=== PATIENT | female | born 1945 | race Caucasian/White ===

== ENCOUNTER 2018-03-10 12:06 | Inpatient (IN) ==
--- NOTE | 2018-03-10 12:20 | Emergency Department Note ---
Disposition Clinical Impression: ST elevation myocardial infarction (STEMI) Qualifiers: Involved coronary artery: unspecified coronary artery Qualified Code(s): I21.3 - ST elevation (STEMI) myocardial infarction of unspecified site Disposition: Admitted As Inpatient Condition: Fair Referrals: NONE,PCP [Primary Care Provider] - Forms: ED Satisfaction Letter Time of Disposition: 12:25 Chest Pain HPI - General Chief Complaint: ED Chest Pain Stated Complaint: Chest Pain Time Seen by Provider: 03/10/18 12:10 Source: patient Mode of arrival: ambulatory Limitations: no limitations Vital Signs Reviewed: Yes Nursing Notes Reviewed: Yes - History of Present Illness HPI Narrative: 73-year-old female presents to the emergency department via EMS with a STEMI. EMS sent the EKG electronically to us reread as a STEMI and called a STEMI at 1200. Patient states that she was having chest pain beginning today said she was very diaphoretic and family's worries as well as a had her come here via EMS. She otherwise has no cardiac history to take any blood thinners. Patient 6 weeks ago did have cholecystectomy that was uneventful. Patient did receive 4 aspirin and 1 nitroglycerin. Patient's chest pain was originally 7F 10 is now a 0 out of 10 when she arrived to the emergency department after receiving his medications. They did place an IV. - Related Data Home Medications Medication Instructions Recorded Confirmed Cholecalciferol (D-3) [Vitamin D] 1,000 unit PO DAILY 02/05/18 02/05/18 Previous Rx's Medication Instructions Recorded OxyCODONE/APAP 7.5/325 [Percocet 1 each PO Q8HR PRN 7 Days #21 02/05/18 7.5/325 MG] tablet Allergies Allergy/AdvReac Type Severity Reaction Status Date / Time latex Allergy Swelling Verified 01/30/18 08:35 of Lip/Tongue/Throat Penicillins [PCN] Allergy Swelling Verified 02/05/18 09:39 of Lip/Tongue/Throat Sulfa (Sulfonamide Allergy Swelling Verified 02/05/18 09:39 Antibiotics) of Lip/Tongue/Throat Constitutional: Denies: fever, chills, weakness, weight change Eyes: Denies: eye pain, eye discharge, vision change ENT ED: Denies: ear pain, throat pain, dental pain, hearing loss, epistaxis, congestion, dysphagia Cardiovascular: Reports: chest pain. Denies: palpitations, dyspnea on exertion , edema, syncope Respiratory: Denies: cough, dyspnea, wheezes, hemoptysis, stridor Gastrointestinal: Denies: abdominal pain, nausea, vomiting, diarrhea, constipation, hematemesis, melena, hematochezia Genitourinary: Denies: dysuria, frequency, hematuria, discharge Musculoskeletal: Denies: back pain, neck pain, arthralgia, myalgia Integumentary: Denies: rash, abrasion, lesions Neurological: Denies: headache, weakness, numbness, paresthesias, confusion, abnormal gait, vertigo Psychiatric: Denies: anxiety, depression, suicidal thoughts, homicidal thoughts , auditory hallucinations, visual hallucinations Endocrine: Denies: fatigue Hematological/Lymphatic: Denies: easy bleeding, easy bruising Allergic/Immunologic: Denies: facial swelling, urticaria Chest Pain PMH - Past Medical History Medical history: Reports: kidney stones Surgical history: Reports: hysterectomy, ureteral stent Psychiatric history: Reports: no psych history ICE CREAM FREEZER history: Reports: no ICE CREAM FREEZER history - Social History Smoking Status: Never smoker Alcohol use: Reports: none Drug use: Reports: none Physical Exam - General Limitations: no limitations General appearance: alert, in no apparent distress - Head Head exam: atraumatic, normocephalic, normal inspection - Eye Eye exam: Present: normal appearance, PERRL, EOMI - ENT ENT exam: normal exam, normal oropharynx, mucous membranes moist - Neck Neck exam: Present: normal inspection, full ROM, trachea midline - Chest Chest inspection: Present: normal inspection, symmetric chest wall rise - Respiratory Respiratory exam: Present: normal lung sounds bilaterally - Cardiovascular Cardiovascular exam: Present: regular rate, normal rhythm, normal heart sounds - Abdominal Exam Abdominal exam: Present: soft, Non-Tender, normal bowel sounds. Absent: tenderness, distention, guarding, rebound, rigidity - Extremities Exam Extremities exam: Present: normal inspection, full ROM. Absent: tenderness, pedal edema - Back Exam Back exam: Present: normal inspection, full ROM. Absent: tenderness, CVA tenderness (R), CVA tenderness (L) - Neurological Exam Neurological exam: Present: alert, oriented X3 - Skin Skin exam: Present: warm, dry, intact, normal color Course Course Narrative: 73-year-old female presents to the emergency room with a STEMI. We x-rayed STEMI at 1200. We contacted the catheter lab and they were between cases was said to call Reglan patient gets urinate but them right back. We will place IV draw labs and put in the catheterization order and sent to catheter lab for further intervention. - Consultations Consultation #1: Spoke with the jewel hole cornerer Dr. Strange who agreed to take the patient's stay to catheterization lab. STEMI was called at 1200 spoke with him at 1202 Time: 12:02 Vital Signs Temperature 97.6 F 03/10/18 12:08 Pulse Rate 67 03/10/18 12:08 Respiratory Rate 20 03/10/18 12:08 Blood Pressure 134/79 03/10/18 12:08 O2 Sat by Pulse Oximetry 98 03/10/18 12:08 Temperature 97.6 F 03/10/18 12:08 Pulse Rate 67 03/10/18 12:08 Respiratory Rate 20 03/10/18 12:08 Blood Pressure 134/79 03/10/18 12:08 O2 Sat by Pulse Oximetry 98 03/10/18 12:08 Oxygen Delivery Oxygen Delivery Room Air Chest Pain - MDM Narrative Medical decision making narrative: 73-year-old female presents to the emergency department with a STEMI. She was symptomatic today and the mealy called EMS with chest pain. When they had a EKG done with EMS presented here and we had a redo AMA again showed ST elevation in leads V2 V3 with reciprocal changes in lead 3. At that time we did call a STEMI alert which is right at 1200. Patient did arrive at 1205 and that time we her story from EMS got an EKG which showed ST elevation in leads V2 through V4 with and 1 with reciprocal changes in 3 and aVF. Due to this we did contact the [facility] with another here we place an IV sheryl labs place the catheterization order in M transfer patient to [facility] for heart catheterization. Patient was notified of everything has gone on she agrees with the plan. Patient was admitted to cardiology service. Patient was in stable condition she was alert and oriented and speaking to us during the entire process. Patient's chest pain was 0-10 when she went to the [facility] originally was 7 out of 10. They did give for aspirin and 1 nitroglycerin and EMS prior to arrival. We did not give anything else in the emergency department. - Medical Records Medical records reviewed: Yes I reviewed the patient's medical records. - EKG Data EKG attestation: Yes I reviewed and interpreted this EKG. EKG results narrative: EKG done at 1214 review myself and the attending shows an acute TN sinus rhythm at a rate of 67, QRS 77, QTC 448. There is ST elevation in leads V2 through V4 and 1 with reciprocal changes in 3 and aVF. No other acute T-wave changes. No signs of any heart block, hypertrophy, heart strain. No signs of WPW/Brugada/ HOCM. When compared with old EKG done a partially 6 weeks ago for surgery this is all new. Heart Score - Score History: Highly Suspicious EKG: Significant ST-Depression Age: Greater than 65 Risk Factors: 1-2 risk factors Troponin: Less than normal limit HEART Score Total: 7 Attestation Statement - Attestation Attestation: I, Richard Britton DO, examined this patient [id number] and my medical decision-making was reviewed with Dr. Anant Vance, Resident Physician. I agree with the documented findings, disposition and treatment plan as described except to the extent set forth below. Please see my progress notes for details.
--- NOTE | 2018-03-10 12:21 | Emergency Department Note ---
Disposition Clinical Impression: ST elevation myocardial infarction (STEMI) Disposition: Admitted As Inpatient Condition: Fair Forms: ED Satisfaction Letter Time of Disposition: 12:23 General Adult HPI - General Chief complaint: ED Chest Pain Stated complaint: Chest Pain Time Seen by Provider: 03/10/18 12:10 Source: patient, EMS Limitations: no limitations - History of Present Illness Pain Scale: 2 - Related Data Home Medications Medication Instructions Recorded Confirmed Cholecalciferol (D-3) [Vitamin D] 1,000 unit PO DAILY 02/05/18 02/05/18 Previous Rx's Medication Instructions Recorded OxyCODONE/APAP 7.5/325 [Percocet 1 each PO Q8HR PRN 7 Days #21 02/05/18 7.5/325 MG] tablet Allergies Allergy/AdvReac Type Severity Reaction Status Date / Time latex Allergy Swelling Verified 01/30/18 08:35 of Lip/Tongue/Throat Penicillins [PCN] Allergy Swelling Verified 02/05/18 09:39 of Lip/Tongue/Throat Sulfa (Sulfonamide Allergy Swelling Verified 02/05/18 09:39 Antibiotics) of Lip/Tongue/Throat Past Medical History - Past Medical History Medical history: Reports: kidney stones Surgical history: Reports: hysterectomy, ureteral stent Psychiatric history: Reports: no psych history HEEL TURNER history: Reports: no HEEL TURNER history - Social History Smoking Status: Former smoker Smokeless Tobacco Status: No Alcohol use: Reports: none Drug use: Reports: none Physical Exam - General Limitations: no limitations General appearance: alert, in no apparent distress Course Vital Signs Temperature 97.6 F 03/10/18 12:08 Pulse Rate 67 03/10/18 12:08 Respiratory Rate 20 03/10/18 12:08 Blood Pressure 134/79 03/10/18 12:08 O2 Sat by Pulse Oximetry 98 03/10/18 12:08 Temperature 97.6 F 03/10/18 12:08 Pulse Rate 67 03/10/18 12:08 Respiratory Rate 20 03/10/18 12:08 Blood Pressure 134/79 03/10/18 12:08 O2 Sat by Pulse Oximetry 98 03/10/18 12:08 Oxygen Delivery Oxygen Delivery Room Air Attestation Statement - Attestation Attestation: I, Richard Britton DO, examined this patient [id number] and my medical decision-making was reviewed with Dr. Anant Vance, Resident Physician. I agree with the documented findings, disposition and treatment plan as described except to the extent set forth below. Please see my progress notes for details. 73-year-old female presents emergency room by EMS for evaluation of chest discomfort and pain. Patient had EKG transmitted to our emergency room prior to arrival it was consistent with an anterior myocardial infarction with elevations in leads 1 and aVL. There is no visible signs of lateral ischemia this point the patient did have reciprocal changes in leads 3 and aVF. STEMI alert was called at 1200 hours. Patient arrived by EMS and the cardiac catheterization team is at the bedside within minutes of arrival. Patient had repeat EKG does show progression of the symptoms with elevations in leads V2 V3 and V4. Patient is progressing into an anterior lateral myocardial infarction. Patient still had symptoms but significantly less on arrival here. Initial pain was 9 out of 10 after one nitroglycerin the pain went down but she described as 7 out of 10 on arrival here. Vital signs are stable heart rate was normal lungs are clear heart was regular. Catheterization team as well as Dr. Strange was contacted and admitted the patient for catheterization at this time. Patient has no other risk factors she denies any history of hypertension hyperlipidemia or diabetes. She has never had a cardiac catheterization before. She did just recently have a cholecystectomy completed 5 weeks ago with no complications and his only other surgical history is a hysterectomy. Patient otherwise clinically stable in no distress and stable to transport to the [facility]. No history of aneurysm or dissection low clinical concern for this etiology based on the presentation symptoms. See detailed documentation of physical exam, medical intervention, medical decision-making and disposition the resident physician's note. No critical care provider the patient's treatment course at this time. Aspirin and nitroglycerin were given prior to arrival.
[2018-03-10] MEDS ORDERED: *HR* Midazolam HCl 2 MG/2 ML VIAL ONE (12:22)
[2018-03-10 12:38] LABS: Basophils # 0.1 K/mcL (0.0-0.2); Basophils % 0.7 %; Eosinophils # 0.2 K/mcL (0.0-0.6); Eosinophils % 1.5 %; Hematocrit 44.4 % (35.3-44.9); Hemoglobin 15.1 g/dL (11.5-15.4); Immature Granulocytes % 0.4 % (0-4); Lymphocytes # 2.8 K/mcL (0.6-4.6); Lymphocytes % 27.8 %; Mean Corpuscular Volume 94.1 fL (83.0-100.0); Monocytes # 0.6 K/mcL (0.0-1.3); Monocytes % 6.4 %; Neutrophils # 6.3 K/mcL (1.6-8.9); Platelet Count 338 K/mcL (140-400); Red Blood Count 4.72 M/mcL (3.82-4.97); Red Cell Distribution Width 12.8 % (11.5-14.5); Segmented Neutrophils % 63.2 %
[2018-03-10 12:48] LABS: Prothrombin Time 11.4 Seconds (9.4-12.1)
[2018-03-10 12:49] LABS: BUN/Creatinine Ratio 30 (6-26); Blood Urea Nitrogen 19 mg/dL (8-23); Calcium 9.5 mg/dL (8.6-10.3); Carbon Dioxide 24 mEq/L (23-29); Chloride 105 mEq/L (98-107); Glucose 144 mg/dL (70-105); Magnesium 2.1 mg/dL (1.6-2.6); Osmolality,Calculated 291 (280-300); Potassium 3.9 mEq/L (3.5-5.1); Sodium 138 mEq/L (136-145); eGFR For Non-African Americans > 60 (> 60)
[2018-03-10 12:54] LABS: Troponin I 0.56 ng/mL (< 0.04)
[2018-03-10] MEDS ORDERED: 0.9 % Sodium Chloride 1,000 ML ONE (13:15)
[2018-03-10] MEDS ORDERED: *HR* Ticagrelor 90 MG TABLET ONE (13:15)
[2018-03-10] MEDS ORDERED: Nitroglycerin 1,000 MCG/10 ML VIAL IV ONE (13:16)
[2018-03-10] MEDS ORDERED: ISOVUE-370 200 ML INFUS..BTL IV ONE (13:16)
[2018-03-10] MEDS ORDERED: Heparin 1,000 UNITS/500 mL 500 ML ONE ×2 (13:16→17:56)
[2018-03-10] MEDS ORDERED: *HR* Heparin 10,000 UNIT/10 ML VIAL ONE (13:16)
--- NOTE | 2018-03-10 13:29 | Invasive Diagnostic Lab Proc ---
Name: Jessa Polanco Date of Study: 03/10/2018 Date: 1945 Ht: 62.0in Medical Record#: [id number] Age: 73 Wt: 158.00lb Gender: Female BSA: 1.73 Order #: [id number] BMI: 28.9 Physicians Procedure Physician: Jaron Strange DO Referring MD: Referring MD: Staff Name Position Time In Mandie Person RT Scrub 12:20 PM Isa Blandon RT (R) Monitor 12:20 PM Steve Odonnell RN Body And Frame Man 12:21 PM Indications Indication STEMI Procedures Performed Procedure PRQ CARD REVASC MT 1 VSL Pre-Procedure Checklist Informed consent is complete signed and on chart. H&P is on chart. ID band is on and ID verified with patient. Patient NPO for procedure The procedure was described for the patient and questions were answered. ECG is on chart. Rhythm: STEMI Plan of Care Patient will tolerate the procedure without complications. Adequate level of comfort will be maintained. Hemodynamics will remain stable Patient will recover from procedure without complications. Respiratory function will be maintained. Cardiac rhythm will remain stable. Patient temperature will be maintained. Patient and/or family have verbalized understanding of the procedure. Patient Education Chief Complaint/Reason for Test: Cardiac Cath Developmental Category: Geriatric (65+ years) Developmentally Appropriate for Age: Yes Learning Barriers: None Education Needs: Procedure Education Method: Verbal Information Taught: Cardiac Cath Educational Evaluation: Able to repeat information Intravenous Access Time IV Size Location DC'd Fluid/Drip Rate Units RN 12:22 PM 22g 1" Patent On Arrival Lt Hand 12:22 PM 18g 1 1/4" Patent On Arrival Rt Antecubital 12:22 PM 18g 1 1/4" Patent On Arrival Lt Antecubital 0.9NaCl 25 ml/hr Steve Odonnell RN Allergies PCN (penicillin) SULFA (sulfonamide) Penicillins Sulfa (Sulfonamide Antibiotics) latex Vital Signs Time BP (mmHg) HR (bpm) O2 Sat. RR (bpm) LOC 12:22 PM 132 / 84 70 95 % 20 5 = Fully awake and oriented or at pre-proc level 12:22 PM / % 4 = Oriented but drowsy 12:37 PM / % 4 = Oriented but drowsy 12:52 PM / % 4 = Oriented but drowsy 12:22 PM 132 / 84 68 99 % 31 12:27 PM 139 / 85 70 95 % 37 12:32 PM 145 / 88 72 98 % 27 12:37 PM 141 / 92 75 97 % 36 12:42 PM 145 / 85 77 96 % 49 12:47 PM 136 / 88 84 95 % 36 12:52 PM 130 / 83 72 96 % 32 12:57 PM 135 / 86 71 97 % 27 01:02 PM 128 / 72 68 97 % 16 01:07 PM 127 / 80 63 95 % 21 Procedural Medications Time Medication Dose Units Method Given By 12:21 PM Oxygen 2 L/min nasal cannula Steve Odonnell RN 12:24 PM Versed 2 mg Intravenous Steve Odonnell RN 12:31 PM Lidocaine 2% 10 ml Subcutaneous Jaron Strange DO 12:41 PM Heparin 5000 units Intravenous Steve Odonnell RN 12:49 PM Nitroglycerin 100 mcg Intracoronary Jaron Strange DO 12:58 PM Nitroglycerin 100 mcg Intracoronary Jaron Strange DO 01:05 PM Brilinta 180 mg Orally Steve Odonnell RN ASA Classification: Emergent Procedure: ASA score is assumed Anitra Score Preprocedure Postprocedure Activity 2- Moves 4 extremities sustained head lift Activity 2- Moves 4 extremities sustained head lift Circulation 2- SBP +/= 20 points of pre-anesthetic level Circulation 2- SBP +/= 20 points of pre-anesthetic level Consciousness 2- Awake and alert oriented x 3 Consciousness 2- Awake and alert oriented x 3 O2 Saturation 2- Able to maintain O2 satruation of 92% on room air O2 Saturation 2- Able to maintain O2 satruation of 92% on room air Respiratory 2- Able to deep breathe and cough well Respiratory 2- Able to deep breathe and cough well Total Score 10 Total Score 10 Contrast Agent: Isovue Diagnostic Contrast: 175 ml Total Contrast: 175 ml Fluoro Dose: 8942 mGy Activated Clotting Time Time Seconds to Clot 12:52 PM 400 01:11 PM 179 Procedure Log Time Note Enter By 12:20 PM CathStat 12:20 PM Pt arrived to refuse laborer 2 at 12:20 [facility] 12:20 PM Mandie Person RT Position: Scrub [facility]: [facility] 12[facility]21 PM Case Start 12:21 PM Isa Blandon RT (R) Position: Monitor Time in: 12:20 [facility] 12:21 PM Steve Odonnell RN Position: Body And Frame Man Time in: [facility] 12: PM Patient charges- Angio tray pack, Navilyst 3mm J, Pulse Oximetry and ACIST tubing and transducer [facility]: PM IV Supplies used: J loop Angio Cath. [facility]: PM Hair removed from procedure site in procedure lab using clippers. Bilateral groin prepped with Chloraprep by Eladia Velasquez, then patient was draped. Skin intact. [facility] : PM Vitals capture started with the following parameters, Patient=Adult, Interval=5 min, Initial Nrtfprvx=848 mmHg, Deflation Rate=5 mmHg, Cuff placed on Right Arm 12: PM Physician arrived : [facility] : PM Meet and greet completed [facility] : PM Sign in performed according to hospital policy. [facility] : PM Procedure start :[facility] : PM Time: 12: Oxygen on at 2 L/min per nasal cannula by Steve Odonnell RN [facility] : PM Time: 12:22 Patient comfortable and pain free: Yes [facility] PM Time: 12:22LOC: 5 = Fully awake and oriented or at pre-proc level [facility] : PM HR=68 bpm, RSIF=949/84 mmhg, SpO2=99.0 %, Resp=31 B/min, Comment=BRUCE lead 1 12:24 PM Time: 12:24 Versed 2 mg Intravenous Given by Steve Odonnell RN [facility] 12:25 PM Clinical Presentation: STEMI or equivalent [facility] : PM HR=70 bpm, HTBV=617/85 mmhg, SpO2=95.0 %, Resp=37 B/min, Comment=BRUCE lead 1 12: PM Pressure channel 2 zeroed. 12:29 PM Recorded ECG: HR=72 Condition=Condition 1 12:31 PM Time out performed according to hospital policy [facility] PM Time: 12:31 10 ml Lidocaine 2% to right groin Subcutaneous Given by Jaron Strange DO [facility] 12:32 PM HR=72 bpm, RIDW=607/88 mmhg, SpO2=98.0 %, Resp=27 B/min, Comment=BRUCE lead 1 12:32 PM Micro-Introducer Kit utilized for sheath placement [facility] 12:37 PM Access obtained by percutaneous puncture. 6Fr 10cm Terumo [place] sheath placed in right Femoral artery. [id number] dspellman 12:37 PM HR=75 bpm, OJJU=759/92 mmhg, SpO2=97.0 %, Resp=36 B/min, Comment=BRUCE lead 1 12:37 PM Time: 12:22LOC: 4 = Oriented but drowsy dspell 12:37 PM Time: 12:22 Patient comfortable and pain free: Yes dspell 12:38 PM 6Fr FR 4 catheter inserted over the wire DNC dspell 12:38 PM Recorded Pressure: LV, HR=77, Condition=Condition 1 (Left Ventricle) LV 125/25/30 12:39 PM Recorded Pressure: LV, Ao, HR=75, Condition=Condition 1 (Left Ventricle) LV 131/6/12, (Aorta) Ao 131/66/95 12:39 PM Catheter selectively placed in left ventricle dspell 12:39 PM Bolus angiogram of left Ventricle complete: 10 ml/sec for a total of 10 mls dspellman 12:39 PM RCA angiography performed in multiple views. dspell 12:39 PM Catheter removed dspellman 12:40 PM PCI Status Emergency dspellman 12:40 PM 6Fr JL4 Cordis guide catheter was used to cannulate the PCI vessel successfully. reused? No dspellman 12:41 PM .014 ChoICE PT Extra Support 300cm guide wire across target lesion- successful. reused? No dspellman 12:41 PM Recorded Pressure: Ao, HR=75, Condition=Condition 1 (Aorta) Ao 135/70/97 12:41 PM Inflation device was opened. dspell 12:41 PM LCA angiography performed in multiple views. dspell 12:42 PM Time: 12:41 Heparin 5000 units Intravenous Given by Steve Odonnell RN dspell 12:42 PM HR=77 bpm, UZLT=576/85 mmhg, SpO2=96.0 %, Resp=49 B/min, Comment=BRUCE lead 1 12:42 PM Lesion found in Mid LAD. Pre Stenosis: 100 Pre HARRIET Flow: 0: No Flow/No perfusion dspell 12:43 PM Lesion found in Distal Circumflex. Pre Stenosis: 80 Pre HARRIET Flow: 3: Complete and Brisk Flow/Perfusion dspellman 12:43 PM Recorded Pressure: Ao, HR=87, Condition=Condition 1 (Aorta) Ao 131/73/99 12:43 PM PCI lesion in Mid LAD. dspellman 12:44 PM Reperfusion with wire dspellman 12:45 PM 2.0 mm x 15 mm Emerge Monorail balloon across target lesion- successful. reused? No dspellman 12:46 PM Balloon inflated @ 12 janeth for 13 seconds dspellman 12:46 PM Balloon catheter removed intact. dspellman 12:47 PM HR=84 bpm, AHEM=810/88 mmhg, SpO2=95.0 %, Resp=36 B/min, Comment=BRUCE lead 1 12:47 PM 2.5mm x 15mm Cordis EluNIR drug-eluting stent across target lesion- successful Lot #[id number] dspellman 12:48 PM Stent deployed @ 14 janeth for 16 seconds dspellman 12:48 PM Stent delivery system removed intact. dspell 12:50 PM Time: 12:49 Nitroglycerin 100 mcg Intracoronary Given by Jaron Strange DO dspellman 12:52 PM HR=72 bpm, HFXT=999/83 mmhg, SpO2=96.0 %, Resp=32 B/min, Comment=BRUCE lead 1 12:52 PM Time: 12:37 Patient comfortable and pain free: Yes dspellman 12:52 PM Time: 12:37LOC: 4 = Oriented but drowsy dspellman 12:52 PM At 12:52 the ACT was >400 seconds. dspellman 12:54 PM 2.25mm x 16mm Synergy drug-eluting stent across target lesion- successful Lot #[id number] dspellman 12:54 PM Stent deployed @ 12 janeth for 15 seconds dspellman 12:55 PM Stent delivery system removed intact. dspellman 12:56 PM 2.5 mm x 8mm NC Emerge balloon across target lesion- successful. reused? No dspellman 12:57 PM HR=71 bpm, VBOT=448/86 mmhg, SpO2=97.0 %, Resp=27 B/min, Comment=BRUCE lead 1 12:57 PM Balloon inflated @ 18 janeth for 16 seconds dspellman 12:57 PM Balloon inflated @ 18 janeth for 12 seconds dspellman 12:58 PM Balloon catheter removed intact. dspellman 12:58 PM Time: 12:58 Nitroglycerin 100 mcg Intracoronary Given by Jaron Strange DO dspell 12:59 PM Recorded Pressure: Ao, HR=69, Condition=Condition 1 (Aorta) Ao 124/65/88 01:00 PM Guide wire removed intact. dspell 01:02 PM HR=68 bpm, BEKK=451/72 mmhg, SpO2=97.0 %, Resp=16 B/min 01:02 PM Guide catheter removed intact. dspell 01:03 PM Bolus angiogram of right Femoral complete: 5 ml/sec for a total of 5 mls dspell 01:03 PM Procedure completed at 13:03 03/10/2018 dspell:03 PM Did you address HARRIET flow and Dominance? Yes dspell 01:05 PM Time: 13:05 Brilinta 180 mg Orally Given by Steve Odonnell RN dspell 01:07 PM HR=63 bpm, ZXPN=370/80 mmhg, SpO2=95.0 %, Resp=21 B/min, Comment=sinus 01:08 PM Time: 12:52LOC: 4 = Oriented but drowsy dspell:08 PM Time: 12:52 Patient comfortable and pain free: Yes ell:09 PM Sign out completed: Radiation Dose 844.67 mGy, 8941.50 cGy/cm2 Fluoro Time: 6.1 Isovue 370 - 200ml contrast 175 ml given by Jaron Strange DO. Complications: NoneCardiac Rehab Consult needed: YesConfirmed administered medications: Yes ell: PM Isovue 370 - 200ml,2 Bottle(s) used. ell: PM Sheath left in place to be pulled on floor/holding areaV+Pad dspell: PM Estimated Blood Loss: minimal dspell:09 PM Post ECG NSR dspell: PM Post Blood Pressure 127/80 dspell: PM 13:09 Post Pulses Bilateral DP & PT 2+ dspell:10 PM Information taught Cardiac Cath and PCI dspell:10 PM Education needs Procedure, Disease Process, and Responsibilities of Patient in Care dspell:10 PM Learning barriers :None dspell:10 PM Education Methods Verbal dspell:10 PM Education evaluation Able to repeat information dspell:10 PM Site status No bleeding/hematoma - Rt Groin as reported by Mandie Person RT at 13:10 dspell 01:10 PM Opsite applied dspell 01:11 PM Family placed in consult room. dspellman 01:11 PM Complications: None dspell 01:11 PM At 13:11 the ACT was 179 seconds. dspell 01:15 PM Report given to Betty COHEN Pt taken to ICU Room #10. 13:15 dspell 01:16 PM Patient out of room: 13:16 [facility] Complications Complication None None Hemodynamics Pressures Site Systolic/A Wave Diastolic/V Wave Mean LV 125 25 30 LV 131 6 12 AO 131 66 95 AO 135 70 97 AO 131 73 99 AO 124 65 88 Post Procedure Information Blood Pressure: 127/80 mmHg Rhythm: NSR Post procedural instructions were given Closure Device Time Device Success/Fail 03/10/2018 1:16:00 PM Site Checks Time Location Status Staff Sheath In? Note 01:10 PM Rt Groin No bleeding/hematoma Mandie Person RT Pulses Time Site Pre-Procedure Post-Procedure Note 03/10/2018 12:24:00 PM Bilateral DP & PT 2+ 1:09:00 PM Bilateral DP & PT 2+ Updated by Isa Blandon RT (R) on 03/10/2018 1:21:19 PM RT Tommy electronically signed on 03/10/2018 1:22:21 PM with status of Final
--- NOTE | 2018-03-10 13:37 | Cardiology History & Physical ---
Date of Encounter: 03/10/18 Time of Encounter: 12:00 Assessment and Plan (1) ST elevation myocardial infarction (STEMI) Current Visit: Yes Status: Acute The assessment and plan as outlined above was discussed with the patient and/or family members who expressed understanding and agreement. All questions were answered. Ongoing chest pain with acute antLateral STEMI, recommend emergent LHC/Poss, pt agrees to proceed. Qualifiers: Involved coronary artery: LAD coronary artery Qualified Code(s): I21.02 - ST elevation (STEMI) myocardial infarction involving left anterior descending coronary artery (2) Vitamin D deficiency Current Visit: Yes Status: Chronic The assessment and plan as outlined above was discussed with the patient and/or family members who expressed understanding and agreement. All questions were answered. On Vitamin D replacement, following with primary care. (3) Cholecystitis Current Visit: Yes Status: Resolved The assessment and plan as outlined above was discussed with the patient and/or family members who expressed understanding and agreement. All questions were answered. Post cholecystectomy approx two weeks ago. History of Present Illness Chief complaint: chest pain HPI: H&P performed, old records reviewed, pt seen and examined prior to procedure, documentation completed post procedure to facilitate emergent LHC/poss, pt not fully reqistered before procedure. Ms. Polanco is a 73 year old female who had first episode of mid sternal chest pain 03/09/18, occurred at rest, lasted approx five minutes, resolved spontaneously. She had reoccurrence of chest pain while at rest this am, starting between 10 and 11, chest pressure, 10/10 at most severe, lasted ten minutes before calling squad, notes was diaphoretic and short of breath. She received sublingual ntg in the squad, with improvement in chest pain from 10 to 0. 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 Initial EKG showed acute anterior lateral Angie, minimal improvement with medical tx. She denies chest pain, pressure or shortness of breath prior to yesterdays episode. She underwent cholecystectomy approximately three weeks ago with some improvement in abdominal pain. She has no previous cardiac history, denies previous stress, echocardiogram or LHC. Past Med Surg Social Fam HX - Past Medical History Medical history: kidney stones Psychiatric history: no psych history - Past Surgical History Surgical History: hysterectomy, ureteral stent Additional surgical history: complete hysterectomy 1989. kidney stones. left ureteoscopic laser kithotripsy of stone with stent placement 2015 - Social History Smoking Status: Never smoker Smokeless Tobacco Status: No Alcohol use: none Drug use: none Medications and Allergies Cholecalciferol (D-3) [Vitamin D] 1,000 unit PO DAILY 02/05/18 [History] OxyCODONE/APAP 7.5/325 [Percocet 7.5/325 MG] 1 each PO Q8HR PRN 7 Days #21 tablet 02/05/18 [Rx] 3 Allergy/AdvReac Type Severity Reaction Status Date / Time latex Allergy Swelling Verified 01/30/18 08:35 of Lip/Tongue/Throat Penicillins [PCN] Allergy Swelling Verified 02/05/18 09:39 of Lip/Tongue/Throat Sulfa (Sulfonamide Allergy Swelling Verified 02/05/18 09:39 Antibiotics) of Lip/Tongue/Throat All Systems Review: The remainder of the systems were reviewed and are negative - Cardiovascular Cardiovascular: as per HPI - Gastrointestinal Gastrointestinal: abdominal pain, nausea, other (Pt recently had cholecystectomy ) Physical Examination General: Conversant, Other (complaining of 4/10 chest pain) HEENT: Atraumatic, Normocephaly Neck: No JVD Cardiac: Reg Rate and Rhythm, Normal S1 and S2 Lungs: Normal Breath Sounds, No Wheeze, Rales, Rhonchi Neuro: Alert and responsive, No focal deficits noted Abdomen: Soft, Non-Tender Skin: No rashes noted on visualized skin Musculoskeletal: No Chest Wall Tenderness Extremities: No Clubbing, No Cyanosis, No Edema, Normal Pulses Results 03/10/18 12:11 03/10/18 12:11
[2018-03-10] MEDS ORDERED: Nitroglycerin 0.4 MG TAB.SUBL SL PRN (13:47)
[2018-03-10] MEDS ORDERED: *HR* Atropine Sulfate 1 MG/10 ML SYRINGE ONE (15:42)
[2018-03-10] MEDS ORDERED: *HR* Heparin 5,000 UNIT/ML VIAL ONE (17:56)
[2018-03-10] MEDS ORDERED: Ondansetron 4 MG/2 ML VIAL ONE (17:57)
[2018-03-10] MEDS ORDERED: Heparin 25,000 UNIT/500 ML D5W 25,000 UNIT/500 ML BAG IVC SCH (18:00)
[2018-03-10] MEDS ORDERED: *HR* Heparin 5,000 UNIT/ML VIAL IVP ONE (18:04)
[2018-03-10] MEDS ORDERED: *HR* Heparin 5,000 UNIT/ML VIAL IVP PRN ×2 (18:04)
[2018-03-10] MEDS: 0.9 % Sodium Chloride 1,000 ML IVC SCH (18:20)
[2018-03-10 19:10] LABS: Hematocrit 43.7 % (35.3-44.9); Hemoglobin 14.5 g/dL (11.5-15.4); Mean Corpuscular HGB Conc 33.2 g/dL (31.6-35.5); Mean Corpuscular Hemoglobin 31.6 pg (28.0-33.3); Mean Corpuscular Volume 95.2 fL (83.0-100.0); Mean Platelet Volume 10.3 fL (9.4-12.4); Platelet Count 307 K/mcL (140-400); Red Blood Count 4.59 M/mcL (3.82-4.97); Red Cell Distribution Width 12.9 % (11.5-14.5)
[2018-03-10 19:15] LABS: INR 1.1; Prothrombin Time 11.9 Seconds (9.4-12.1)
[2018-03-10 19:19] LABS: Heparin anti-factor XA UFH 1.03 IU/mL (0.30-0.70)
[2018-03-10] MEDS: *HR* Ticagrelor 90 MG TABLET PO SCH (19:46)
[2018-03-10] MEDS ORDERED: Ondansetron 4 MG/2 ML VIAL IVP PRN (21:27)
[2018-03-10] MEDS ORDERED: *HR* Metoprolol 5 MG/5 ML VIAL IVP ONE ×2 (22:57→23:11)
[2018-03-10] MEDS ORDERED: *HR* LORazepam 2 MG/ML VIAL IVP PRN (23:01)
[2018-03-10] MEDS ORDERED: *HR* LORazepam 2 MG/ML VIAL ONE (23:11)
[2018-03-11 00:42] LABS: Basophils % 0.2 %; Hematocrit 41.5 % (35.3-44.9); Hemoglobin 13.9 g/dL (11.5-15.4); Immature Granulocytes % 0.2 % (0-4); Lymphocytes # 1.3 K/mcL (0.6-4.6); Lymphocytes % 10.1 %; Mean Corpuscular HGB Conc 33.5 g/dL (31.6-35.5); Mean Corpuscular Hemoglobin 31.4 pg (28.0-33.3); Mean Corpuscular Volume 93.7 fL (83.0-100.0); Mean Platelet Volume 10.2 fL (9.4-12.4); Monocytes # 0.6 K/mcL (0.0-1.3); Monocytes % 4.7 %; Neutrophils # 10.9 K/mcL (1.6-8.9); Platelet Count 311 K/mcL (140-400); Red Blood Count 4.43 M/mcL (3.82-4.97); Red Cell Distribution Width 13.2 % (11.5-14.5); Segmented Neutrophils % 84.8 %
[2018-03-11 00:58] LABS: BUN/Creatinine Ratio 30 (6-26); Blood Urea Nitrogen 15 mg/dL (8-23); Calcium 9.1 mg/dL (8.6-10.3); Carbon Dioxide 21 mEq/L (23-29); Chloride 108 mEq/L (98-107); Glucose 156 mg/dL (70-105); Osmolality,Calculated 290 (280-300); Potassium 4.2 mEq/L (3.5-5.1); Sodium 138 mEq/L (136-145); eGFR For Non-African Americans > 60 (> 60)
[2018-03-11] MEDS: 0.9 % Sodium Chloride 1,000 ML IVC SCH ×2 (02:16→04:15)
[2018-03-11] MEDS: *HR* Ticagrelor 90 MG TABLET PO SCH ×2 (07:46→21:12)
[2018-03-11] MEDS ORDERED: Aspirin 81 MG TAB.CHEW PO SCH (09:00)
--- NOTE | 2018-03-11 09:35 | Cardiology Progress Note ---
Date of Encounter: 03/11/18 Time of Encounter: 09:20 Assessment and Plan (1) ST elevation myocardial infarction (STEMI) Current Visit: Yes Status: Acute Admitted on 03/10/18 with anterior STEMI. [facility] 03/10/18: s/p succesful PTCA/CHRISTINA in the mLAD; otherwise 80% dLCx, EF 35% TTE: pending. Chest pain free upon exam. No issues with right groin cath site. Will plan to step down to 2N today, encouraged ambulation with assistance. Labs, vitals, and telemetry are stable. Continue BB, ACEi, statin. Emphasized the importance of uninterrupted DAPT (asa + brilinta) for a minimum of 1 year following CHRISTINA--pt. agreed. Cardiac rehab. VTE prophylaxis: currently on IV heparin gtt, will plan to transition to SC heparin once gtt d/c'ed. If remains stable, consider discharge to home on 03/12/18. Qualifiers: Involved coronary artery: LAD coronary artery Qualified Code(s): I21.02 - ST elevation (STEMI) myocardial infarction involving left anterior descending coronary artery (2) Systolic dysfunction Current Visit: Yes Status: Acute Likely secondary to acute NH. No prior testing. EF 35% per LV gram. TTE: pending. Tolerating BB and ACEi--on coreg and lisinopril. Continue to optimize doses as needed as BP/HR will tolerate. Clinically appears euvolemic up exam. Plan to revaluate LVEF after revascularization/trial of GDMT. (3) Vitamin D deficiency Current Visit: Yes Status: Chronic On Vitamin D replacement, following with primary care. Discussion w patient/family: The assessment and plan as outlined above was discussed with the patient and/or family members who expressed understanding and agreement. All questions were answered. Thank you for involving us in the care of your patient. Please call with any questions. The patient will be discussed and reviewed with Dr. Monzon; changes to be made accordingly. Subjective Principal diagnosis: STEMI Interval history: Seen and examined. Admitted on 03/10/18--anterior STEMI s/p PCI to mLAD, EF 35% Has been chest pain free this morning, mild pain overnight now resolved. No issues with right groin cath site--soft, no hematoma, ecchymosis or bleeding noted at site. +2 distal pulses. Objective Vital Signs, Last 4 Hours Temp Pulse Resp BP Pulse Ox 03/11/18 09:00 76 16 128/86 97 03/11/18 08:00 69 20 116/67 98 03/11/18 07:50 97.7 F 03/11/18 07:45 78 03/11/18 07:00 71 18 139/79 100 03/11/18 06:00 77 26 130/91 97 General: Conversant, No Apparent Distress HEENT: Atraumatic, Normocephaly, Mucus Membranes Moist Cardiac: Reg Rate and Rhythm, Normal S1 and S2 Lungs: Normal Breath Sounds Neuro: Alert and responsive Abdomen: Soft Skin: No rashes noted on visualized skin Musculoskeletal: No Chest Wall Tenderness Extremities: No Edema, Normal Pulses Other: right groin cath site: dressing C/D/I; no bleeding or oozing noted at site. +2 DP/PT pulses. Results 03/11/18 00:30 03/11/18 00:30 Lab Results 03/10/18 03/10/18 03/11/18 18:55 18:55 00:30 WBC 13.4 H Hgb 14.5 Hct 43.7 Plt Count 307 INR 1.1 APTT 50.1 H D Sodium Potassium Chloride Carbon Dioxide BUN Creatinine Glucose Calcium 03/11/18 03/11/18 00:30 00:30 WBC 12.8 H Hgb 13.9 Hct 41.5 Plt Count 311 INR APTT Sodium 138 Potassium 4.2 Chloride 108 H Carbon Dioxide 21 L BUN 15 Creatinine 0.50 L Glucose 156 H Calcium 9.1 Active Medications Aspirin (Aspirin) 81 mg PO DAILY [facility] Stop: 09/10/18 09:01 Last Admin: 03/11/18 07:46 Dose: 81 mg Atorvastatin Calcium (Lipitor) 20 mg PO HS [facility] Stop: 09/09/18 21:01 Last Admin: 03/10/18 19:46 Dose: 20 mg Carvedilol (Coreg) 6.25 mg PO BIDWM ELENITA PRN Reason: Protocol Stop: 09/09/18 17:01 Last Admin: 03/11/18 07:46 Dose: 6.25 mg Heparin Sodium (Porcine) (Heparin) 4,000 unit IVP Q6HR PRN PRN Reason: SEE COMMENTS Stop: 09/09/18 18:05 Heparin Sodium (Porcine) (Heparin) 2,000 unit IVP Q6H PRN PRN Reason: SEE COMMENTS Stop: 09/09/18 18:05 Last Admin: 03/11/18 03:07 Dose: 2,000 unit Sodium Chloride (0.9 % Sodium Chloride) 1,000 mls @ 100 mls/hr IVC .Q10H ELENITA Stop: 09/09/18 14:01 Last Admin: 03/11/18 04:15 Dose: 100 mls/hr Heparin Sodium/Dextrose (Heparin 25,000 Unit/500 Ml D5w) 25,000 unit in 500 mls @ 18.048 mls/hr IVC .Q24H ELENITA; 12 UNIT/KG/HR PRN Reason: Protocol Stop: 09/09/18 18:01 Last Titration: 03/11/18 03:02 Dose: 11 unit/kg/hr, 16.544 mls/hr Lisinopril (Zestril) 2.5 mg PO DAILY ELENITA PRN Reason: Protocol Stop: 09/10/18 09:01 Last Admin: 03/11/18 07:45 Dose: 2.5 mg Lorazepam (Ativan) 1 mg IVP Q6HR PRN PRN Reason: Anxiety Stop: 09/09/18 23:02 Last Admin: 03/10/18 23:14 Dose: 1 mg Nitroglycerin (Nitroglycerin) 0.4 mg SL Q5MIN PRN PRN Reason: Chest Pain Stop: 09/09/18 13:48 Last Admin: 03/11/18 05:50 Dose: 0.4 mg Ondansetron HCl (Zofran) 4 mg IVP Q6HR PRN; Protocol PRN Reason: Nausea Stop: 09/09/18 21:28 Last Admin: 03/10/18 21:39 Dose: 4 mg Ticagrelor (Brilinta) 90 mg PO BID ELENITA Stop: 09/09/18 21:01 Last Admin: 03/11/18 07:46 Dose: 90 mg - Imaging and Cardiology Echo: pending Cardiac cath: report reviewed Other Results: 12 hour tele: avg HR=76 SR. No events noted. - EKG Interpretation EKG results cardiology: personally reviewed - VTE Reasons for not Prescribing Prophylaxis: Refused by patient Consult Discharge Plan - Plan Referrals: NONE,PCP [Primary Care Provider] -
[2018-03-11] MEDS ORDERED: Nitroglycerin 0.4 MG TAB.SUBL SL PRN (09:58)
[2018-03-11] MEDS ORDERED: Ondansetron 4 MG/2 ML VIAL IVP PRN (09:58)
[2018-03-11] MEDS: Cholecalciferol (D-3) 1,000 UNIT TABLET PO SCH (11:35)
[2018-03-11] MEDS: *HR* Heparin 5,000 UNIT/ML VIAL SQ SCH (17:02)
[2018-03-11] MEDS ORDERED: *HR* Heparin 5,000 UNIT/ML VIAL SQ SCH (18:00)
[2018-03-11] MEDS: *HR* LORazepam 2 MG/ML VIAL IVP PRN (21:12)
[2018-03-12 05:30] LABS: Basophils # 0.1 K/mcL (0.0-0.2); Basophils % 0.4 %; Eosinophils # 0.1 K/mcL (0.0-0.6); Eosinophils % 0.5 %; Hematocrit 36.9 % (35.3-44.9); Immature Granulocytes % 0.4 % (0-4); Lymphocytes # 1.7 K/mcL (0.6-4.6); Lymphocytes % 12.9 %; Mean Corpuscular HGB Conc 33.1 g/dL (31.6-35.5); Mean Corpuscular Hemoglobin 31.7 pg (28.0-33.3); Mean Corpuscular Volume 95.8 fL (83.0-100.0); Mean Platelet Volume 10.4 fL (9.4-12.4); Monocytes # 1.1 K/mcL (0.0-1.3); Monocytes % 8.8 %; Platelet Count 202 K/mcL (140-400); Red Blood Count 3.85 M/mcL (3.82-4.97); Red Cell Distribution Width 13.3 % (11.5-14.5)
[2018-03-12 05:35] LABS: Hemoglobin 12.2 g/dL (11.5-15.4)
[2018-03-12 05:47] LABS: BUN/Creatinine Ratio 25 (6-26); Blood Urea Nitrogen 13 mg/dL (8-23); Calcium 8.5 mg/dL (8.6-10.3); Carbon Dioxide 25 mEq/L (23-29); Chloride 109 mEq/L (98-107); Glucose 98 mg/dL (70-105); Magnesium 1.9 mg/dL (1.6-2.6); Osmolality,Calculated 288 (280-300); Potassium 3.8 mEq/L (3.5-5.1); Sodium 139 mEq/L (136-145); eGFR For Non-African Americans > 60 (> 60)
[2018-03-12] MEDS: *HR* Heparin 5,000 UNIT/ML VIAL SQ SCH ×2 (06:24→17:20)
[2018-03-12] MEDS ORDERED: Perflutren Lipid Microsphere 1.3 ML in 0.9 % Sodium Chloride 8.7 ML IVP ONE (08:18)
[2018-03-12] MEDS: Aspirin 81 MG TAB.CHEW PO SCH (08:47)
[2018-03-12] MEDS: *HR* Ticagrelor 90 MG TABLET PO SCH ×2 (08:47→22:12)
[2018-03-12] MEDS: Cholecalciferol (D-3) 1,000 UNIT TABLET PO SCH (08:47)
--- NOTE | 2018-03-12 09:56 | Event Note ---
Date of Encounter: 03/12/18 Time of Encounter: 09:30 - Cardiology Event Note Discussed with Dr. Strange, plan for staged PCI of LCx today (80% distal stenosis ) given recurrent chest pain s/p initial cath on 03/10/18. Patient has been chest pain free overnight. EF per LV gram 35%, TTE pending. Discussed with patient, family who agrees with plan.
[2018-03-12] MEDS ORDERED: 0.9 % Sodium Chloride 1,000 ML ONE ×2 (12:45→13:31)
[2018-03-12] MEDS ORDERED: Nitroglycerin 1,000 MCG/10 ML VIAL IV ONE (12:46)
[2018-03-12] MEDS ORDERED: *HR* Heparin 10,000 UNIT/10 ML VIAL ONE (12:46)
[2018-03-12] MEDS ORDERED: ISOVUE-370 200 ML INFUS..BTL IV ONE ×2 (12:46→14:05)
[2018-03-12] MEDS ORDERED: Heparin 1,000 UNITS/500 mL 500 ML ONE (12:46)
[2018-03-12] MEDS ORDERED: *HR* Midazolam HCl 2 MG/2 ML VIAL ONE (13:31)
[2018-03-12] MEDS ORDERED: *HR* Bivalirudin 250 MG VIAL IVC ONE (13:31)
[2018-03-12] MEDS ORDERED: *HR* FentaNYL (PF) 100 MCG/2 ML VIAL ONE (13:31)
--- NOTE | 2018-03-12 14:40 | Invasive Diagnostic Lab Proc ---
Name: Jessa Polanco Date of Study: 03/12/2018 Date: 1945 Ht: 61.8in Medical Record#: [id number] Age: 73 Wt: 147.71lb Gender: Female BSA: 1.68 Order #: [id number] BMI: 27.18 Physicians Procedure Physician: Nora Wilson MD, [facility] Referring MD: Referring MD: Staff Name Position Time In Steve Odonnell RN Monitor 01:10 PM Isa Blandon RT (R) Scrub 01:10 PM Magalys Stanley RN Lpn Rn 01:10 PM Indications Indication Non-Stemi STaged PCI Procedures Performed Procedure PRQ CARD CHRISTINA STENT W/ANGIO 1 VSL PRQ CARD STENT W/ANGIO ADDL Pre-Procedure Checklist Informed consent is complete signed and on chart. H&P is on chart. ID band is on and ID verified with patient. Patient NPO for procedure The procedure was described for the patient and questions were answered. ECG is on chart. Plan of Care Patient will tolerate the procedure without complications. Adequate level of comfort will be maintained. Hemodynamics will remain stable Patient will recover from procedure without complications. Respiratory function will be maintained. Cardiac rhythm will remain stable. Patient temperature will be maintained. Patient and/or family have verbalized understanding of the procedure. Patient Education Chief Complaint/Reason for Test: Cardiac Cath Developmental Category: Geriatric (65+ years) Developmentally Appropriate for Age: Yes Learning Barriers: None Education Needs: Procedure Education Method: Verbal Information Taught: Cardiac Cath Educational Evaluation: Able to repeat information Intravenous Access Time IV Size Location DC'd Fluid/Drip Rate Units RN 18g 1 1/" Patent On Arrival Lt Antecubital 0.9NaCl ml/hr 22g 1" Patent On Arrival Rt Antecubital Allergies PCN (penicillin) SULFA (sulfonamide) Penicillins Sulfa (Sulfonamide Antibiotics) latex Vital Signs Time BP (mmHg) HR (bpm) O2 Sat. RR (bpm) LOC 01:37 PM / % 5 = Fully awake and oriented or at pre-proc level 01:37 PM / % 4 = Oriented but drowsy 01:52 PM / % 4 = Oriented but drowsy 02:15 PM 91 / 52 56 97 % 20 02:20 PM 95 / 55 71 95 % 16 01:30 PM 113 / 72 57 98 % 19 01:35 PM 111 / 69 70 98 % 25 01:40 PM 104 / 64 72 98 % 21 01:45 PM 108 / 64 71 97 % 26 01:50 PM 93 / 56 71 94 % 18 01:55 PM 77 / 43 67 94 % 16 02:00 PM 88 / 47 63 93 % 18 02:05 PM 92 / 50 54 94 % 16 02:10 PM 90 / 53 58 96 % 17 Procedural Medications Time Medication Dose Units Method Given By 01:35 PM Oxygen 2 L/min nasal cannula Magalys Stanley RN 01:35 PM Versed 2 mg Intravenous Magalys Stanley RN 01:35 PM Fentanyl 50 mcg Intravenous Magalys Stanley RN 01:43 PM Lidocaine 2% 20 ml Subcutaneous Nora Wilson MD, [facility] 01:45 PM Angiomax 0.75mg/kg bolus: 10 ml Intravenous Magalys Stanley RN 01:45 PM Angiomax 1.75mg/kg/hr: 23 ml/hr Intravenous Magalys Stanley RN 01:54 PM Nitroglycerin 200 mcg Intracoronary Nora Wilson MD, FAC 02:12 PM Nitroglycerin 200 mcg Intracoronary Nora Wilson MD, FAC 02:17 PM Nitroglycerin 200 mcg Intracoronary Nora Wilson MD, [facility] ASA Classification: CLASS II- Mild systemic disease (i.e. well-controlled diabetes, hypertension, asthma, cigarette smoking) Anitra Score Preprocedure Postprocedure Activity 2- Moves 4 extremities sustained head lift Activity 2- Moves 4 extremities sustained head lift Circulation 2- SBP +/= 20 points of pre-anesthetic level Circulation 2- SBP +/= 20 points of pre-anesthetic level Consciousness 2- Awake and alert oriented x 3 Consciousness 2- Awake and alert oriented x 3 O2 Saturation 2- Able to maintain O2 satruation of 92% on room air O2 Saturation 2- Able to maintain O2 satruation of 92% on room air Respiratory 2- Able to deep breathe and cough well Respiratory 2- Able to deep breathe and cough well Total Score 10 Total Score 10 Contrast Agent: Isovue Diagnostic Contrast: 230 ml Total Contrast: 230 ml Fluoro Dose: 47611 mGy Procedure Log Time Note Enter By 01:10 PM Steve Odonnell RN Position: Monitor Time in: 13:10 cedwards 01:10 PM Isa Blandon RT (R) Position: Scrub Time in: 13:10 cedwards 01:10 PM Magalys Stanley RN Position: Lpn Rn Time in: 13:10 cedwards :29 PM Pt arrived to laboratory administrative director 2 at 13:29 cedwards :29 PM Patient charges- Angio tray pack, Navilyst 3mm J, Pulse Oximetry and ACIST tubing and transducer cedwards :29 PM IV Supplies used: J loop Angio Cath. cedwards :29 PM Case Start : PM CathStat : PM Vitals capture started with the following parameters, Patient=Adult, Interval=5 min, Initial Togqixeg=571 mmHg, Deflation Rate=5 mmHg, Cuff placed on Right Arm 01:30 PM Hair removed from procedure site in procedure lab using clippers. Bilateral groin prepped with Chloraprep by Magalys Stanley RN, then patient was draped. Skin intact. ced:30 PM Physician arrived 13:30 cedwards :30 PM Meet and greet completed :30 PM Sign in performed according to hospital policy. cedwards :30 PM Procedure start 13:30 cedwards :30 PM HR=57 bpm, VVKB=264/72 mmhg, SpO2=98 %, Resp=19 B/min 01:31 PM Recorded ECG: HR=72 Condition=Condition 1 01:35 PM HR=70 bpm, FFWR=190/69 mmhg, SpO2=98.0 %, Resp=25 B/min, EtCO2=36 mmHg 01:35 PM Time: 13:35 Oxygen on at 2 L/min per nasal cannula by Magalys Stanley RN :35 PM Time: 13:35 Versed 2 mg Intravenous Given by Magalys Stanley RN cedwards :35 PM Time: 13:35 Fentanyl 50 mcg Intravenous Given by Magalys Stanley RN cedwards :37 PM Time: 13:36 Patient comfortable and pain free: Yes :37 PM Time: 13:37LOC: 5 = Fully awake and oriented or at pre-proc level cedwards 01:40 PM HR=72 bpm, OXWH=794/64 mmhg, SpO2=98.0 %, Resp=21 B/min, EtCO2=32 mmHg 01:42 PM ASA Class CLASS II- Mild systemic disease (i.e. well-controlled diabetes, hypertension, asthma, cigarette smoking) cedwards :43 PM Clinical Presentation: Unstable angina cedwards :43 PM Time out performed according to hospital policy ced:45 PM Time: 13:43 20 ml Lidocaine 2% to right groin Subcutaneous Given by Nora Wilson MD, [facility] cedwards :45 PM Access obtained by percutaneous puncture. 6Fr 10cm Terumo Billingsley sheath placed in right Femoral artery. [id number] cedwards :45 PM HR=71 bpm, ZQSK=947/64 mmhg, SpO2=97.0 %, Resp=26 B/min, EtCO2=34 mmHg 01:45 PM Time: 13:45 Angiomax 0.75mg/kg bolus: 10 ml Intravenous Given by Magalys Stanley RN Billy pump cedwards :46 PM Time: 13:45 Angiomax 1.75mg/kg/hr: 23 ml/hr Intravenous Given by Magalys Stanley RN Billy pump cedwards :46 PM 6Fr XB LAD 3.5 Cordis guide catheter was used to cannulate the PCI vessel successfully. reused? No cedwards :46 PM .014 Prowater 180cm guide wire across target lesion- successful. reused? No cedwards 01:47 PM Recorded Pressure: Ao, HR=68, Condition=Condition 1 (Aorta) Ao 77/45/59 01:49 PM 2.0 mm x 12 mm Emerge Monorail balloon across target lesion- successful. reused? No cedwards 01:50 PM HR=71 bpm, NIBP=93/56 mmhg, SpO2=94.0 %, Resp=18 B/min, EtCO2=22 mmHg 01:50 PM Lesion found in Distal Circumflex. Pre Stenosis: 80 Pre HARRIET Flow: 3: Complete and Brisk Flow/Perfusion cedwards 01:51 PM Recorded Pressure: Ao, HR=60, Condition=Condition 1 (Aorta) Ao 77/45/60 01:52 PM Time: 13:37 Patient comfortable and pain free: Yes cedwards :52 PM Time: 13:37LOC: 4 = Oriented but drowsy cedwards 01:52 PM Inflation device was opened. cedwards :52 PM Balloon inflated @ 8 janeth for 24 seconds cedwards :53 PM Balloon catheter removed intact. ced:54 PM Time: 13:54 Nitroglycerin 200 mcg Intracoronary Given by Nora Wilson MD, [facility] cedwards 01:55 PM HR=67 bpm, NIBP=77/43 mmhg, SpO2=94.0 %, Resp=16 B/min 01:55 PM 2.5mm x 16mm Synergy drug-eluting stent across target lesion- successful Lot #[id number] cedwards 01:56 PM Stent deployed @ 12 janeth for 30 seconds cedwards 01:56 PM Stent delivery system removed intact. cedwards 01:57 PM Guide wire removed intact. cedwards 02:00 PM HR=63 bpm, NIBP=88/47 mmhg, SpO2=93.0 %, Resp=18 B/min, EtCO2=18 mmHg 02:02 PM Wire repositioned to Mid LAD cedwards 02:04 PM Lesion found in Proximal LAD. Pre Stenosis: 70 Pre HARRIET Flow: 3: Complete and Brisk Flow/Perfusion cedwards 02:04 PM Recorded Pressure: Ao, HR=58, Condition=Condition 1 (Aorta) Ao 70/42/54 02:05 PM HR=54 bpm, NIBP=92/50 mmhg, SpO2=94.0 %, Resp=16 B/min, EtCO2=18 mmHg 02:07 PM Time: 13:52 Patient comfortable and pain free: Yes cedwards 02:07 PM Time: 13:52LOC: 4 = Oriented but drowsy cedwards 02:09 PM 2.75mm x 24mm Synergy drug-eluting stent across target lesion- successful Lot #[id number] cedwards 02:10 PM Stent deployed @ 12 janeth for 30 seconds cedwards 02:10 PM HR=58 bpm, NIBP=90/53 mmhg, SpO2=96.0 %, Resp=17 B/min 02:11 PM Stent balloon reinflated @ 18 janeth for 20 seconds cedwards 02:11 PM Stent delivery system removed intact. cedwards 02:12 PM Time: 14:12 Nitroglycerin 200 mcg Intracoronary Given by Nora Wilson MD, [facility] cedwards 02:13 PM Recorded Pressure: Ao, HR=71, Condition=Condition 1 (Aorta) Ao 68/44/55 02:15 PM 2.75 mm x 8mm NC Emerge balloon across target lesion- successful. reused? No cedwards 02:15 PM Balloon inflated @ 20 janeth for 15 seconds cedwards 02:15 PM HR=56 bpm, NIBP=91/52 mmhg, SpO2=97.0 %, Resp=20 B/min, EtCO2=20 mmHg 02:15 PM Balloon inflated @ 20 janeth for 15 seconds cedwards 02:16 PM Balloon inflated @ 24 janeth for 11 seconds cedwards 02:17 PM Time: 14:17 Nitroglycerin 200 mcg Intracoronary Given by Nora Wilson MD, [facility] cedwards 02:18 PM Guide wire removed intact. cedwards 02:19 PM Balloon catheter removed intact. cedwards 02:19 PM Guide catheter removed intact. cedwards 02:19 PM Procedure completed at 14:19 03/12/2018 cedwards 02:19 PM Did you address HARRIET flow and Dominance? Yes cedwards 02:20 PM HR=71 bpm, NIBP=95/55 mmhg, SpO2=95.0 %, Resp=16 B/min 02:20 PM Sign out completed: Radiation Dose 956.11 mGy, 31436 cGy/cm2 Fluoro Time: 10.8 Isovue 370 - 200ml contrast 230 ml given by Nora Wilson MD, [facility]. Complications: NoneCardiac Rehab Consult needed: YesConfirmed administered medications: Yes cedwards 02:20 PM Sheath left in place to be pulled on floor/holding areaV+Pad cedwards 02:21 PM Estimated Blood Loss: minimal cedwards 02:21 PM Post ECG Sinus Bradycardia cedwards 02:21 PM Post Blood Pressure 95/55 cedwards 02:21 PM Information taught Cardiac Cath and PCI cedwards 02:21 PM Education needs Procedure, Plan of Care, and Disease Process cedwards 02:21 PM Learning barriers :None cedwards 02:22 PM Education Methods Verbal cedwards 02:22 PM Site status No bleeding/hematoma - Rt Groin as reported by Isa Blandon RT (R) at 14:22 cedwards 02:22 PM Opsite applied cedwards 02:22 PM Plavix, Effient or Brilinta given No cedwards 02:22 PM Family placed in consult room. cedwards 02:22 PM Complications: None cedwards 02:27 PM Coronary Dominance: right cedwards 02:29 PM Report given to Alec COHEN Pt taken to ICU Room #10. 14:29 cedwards Complications Complication None None Hemodynamics Pressures Site Systolic/A Wave Diastolic/V Wave Mean AO 77 45 59 AO 77 45 60 AO 70 42 54 AO 68 44 55 Post Procedure Information Blood Pressure: 95/55 mmHg Rhythm: Sinus Bradycardia Post procedural instructions were given Site Checks Time Location Status Staff Sheath In? Note 02:22 PM Rt Groin No bleeding/hematoma Isa Blandon RT (R) Pulses Time Site Pre-Procedure Post-Procedure Note Bilateral DP & PT 1+ Bilateral radial 1+ Updated by Steve Odonnell RN on 03/12/2018 2:32:22 PM electronically signed on 03/12/2018 2:32:57 PM with status of Final
[2018-03-12] MEDS ORDERED: *HR* Heparin 5,000 UNIT/ML VIAL IVP PRN ×2 (16:12)
[2018-03-12 17:16] LABS: Hematocrit 37.3 % (35.3-44.9); Hemoglobin 11.9 g/dL (11.5-15.4); Mean Corpuscular HGB Conc 31.9 g/dL (31.6-35.5); Mean Corpuscular Hemoglobin 31.2 pg (28.0-33.3); Mean Corpuscular Volume 97.6 fL (83.0-100.0); Mean Platelet Volume 10.7 fL (9.4-12.4); Platelet Count 197 K/mcL (140-400); Red Blood Count 3.82 M/mcL (3.82-4.97); Red Cell Distribution Width 13.4 % (11.5-14.5)
[2018-03-12 17:30] LABS: INR 1.3; Prothrombin Time 15.1 Seconds (9.4-12.1)
[2018-03-12 17:31] LABS: Heparin anti-factor XA UFH 0.07 IU/mL (0.30-0.70)
[2018-03-12] MEDS ORDERED: Warfarin perPT PO PRN (18:00)
[2018-03-12] MEDS ORDERED: *HR* Warfarin 2.5 MG TABLET PO ONE (18:00)
[2018-03-12] MEDS ORDERED: Heparin 25,000 UNIT/500 ML D5W 25,000 UNIT/500 ML BAG IVC SCH (21:00)
[2018-03-12] MEDS ORDERED: Acetaminophen 325 MG TABLET PO PRN (21:59)
[2018-03-12] MEDS: *HR* LORazepam 2 MG/ML VIAL IVP PRN (22:12)
[2018-03-13 05:14] LABS: INR 1.1; Prothrombin Time 12.2 Seconds (9.4-12.1)
[2018-03-13] MEDS: *HR* Heparin 5,000 UNIT/ML VIAL SQ SCH (05:22)
[2018-03-13 05:38] LABS: Troponin I 15.58 ng/mL (< 0.04)
[2018-03-13 05:44] LABS: BUN/Creatinine Ratio 24 (6-26); Blood Urea Nitrogen 12 mg/dL (8-23); eGFR For Non-African Americans > 60 (> 60)
[2018-03-13] MEDS: Aspirin 81 MG TAB.CHEW PO SCH (07:41)
[2018-03-13] MEDS: *HR* Ticagrelor 90 MG TABLET PO SCH ×2 (07:41→20:25)
[2018-03-13] MEDS: Cholecalciferol (D-3) 1,000 UNIT TABLET PO SCH (07:41)
--- NOTE | 2018-03-13 09:38 | Cardiology Progress Note ---
Date of Encounter: 03/13/18 Time of Encounter: 09:35 Assessment and Plan (1) ST elevation myocardial infarction (STEMI) Current Visit: Yes Status: Acute Admitted on 03/10/18 with anterior STEMI. [facility] 03/10/18: s/p succesful PTCA/CHRISTINA in the mLAD; otherwise 80% dLCx, EF 35% TTE: EF 35%, severe global dysfuntion, mild-moderate, mod PAH, apical thrombus seen. Chest pain free upon exam. No issues with right groin cath site. Will plan to step down to 2N today, encouraged ambulation with assistance. Labs, vitals, and telemetry are stable. Continue BB, ACEi, statin. Emphasized the importance of uninterrupted DAPT (asa + brilinta) for a minimum of 1 year following CHRISTINA pt. voiced understanding. Cardiac rehab ordered. VTE prophylaxis: currently on IV heparin gtt for apical thrombus with bridge to coumadin therapy. . D/c once INR 2.0. Qualifiers: Involved coronary artery: LAD coronary artery Qualified Code(s): I21.02 - ST elevation (STEMI) myocardial infarction involving left anterior descending coronary artery (2) Systolic dysfunction Current Visit: Yes Status: Acute Likely secondary to acute [place]. No prior testing. EF 35% per LV gram. TTE: EF 35%. Tolerating BB and ACEi--on coreg and lisinopril. Continue to optimize doses as needed as BP/HR will tolerate. No changes today. Clinically appears euvolemic up exam. Plan to revaluate LVEF after revascularization/trial of GDMT in 45 days. (3) Left ventricular apical thrombus Current Visit: Yes Status: Acute Coumadin started for apical thrombus. IV heparin bridge until INR 2.0. Discussion w patient/family: The assessment and plan as outlined above was discussed with the patient and/or family members who expressed understanding and agreement. All questions were answered. Thank you for involving us in the care of your patient. Please call with any questions. Subjective Principal diagnosis: STEMI Interval history: Ms. Polanco is resting quietly in bed. Denies chest pain or SOB. Objective Vital Signs, Last 4 Hours Temp Pulse Resp BP Pulse Ox 03/13/18 08:18 98.3 F 03/13/18 08:00 74 16 109/65 96 03/13/18 07:00 74 16 116/69 98 03/13/18 06:00 73 22 133/73 98 General: Conversant, No Apparent Distress HEENT: Atraumatic, Normocephaly, Mucus Membranes Moist Neck: No JVD, Normal carotid pulses Cardiac: Reg Rate and Rhythm, Normal S1 and S2, No Murmur Lungs: Normal Breath Sounds, No Wheeze, Rales, Rhonchi Neuro: Alert and responsive, No focal deficits noted Abdomen: Soft, Non-Tender Skin: No rashes noted on visualized skin Musculoskeletal: No Chest Wall Tenderness Extremities: No Clubbing, No Cyanosis, No Edema, Normal Pulses, Other (Right femoral dressing dry and intact. ) Results 03/13/18 04:35 03/13/18 04:35 Lab Results 03/12/18 03/12/18 03/13/18 16:51 16:51 04:35 WBC 10.8 Hgb 11.9 13.0 Hct 37.3 39.0 Plt Count 197 208 INR 1.3 BUN Creatinine Troponin I 03/13/18 03/13/18 04:35 04:35 WBC Hgb Hct Plt Count INR 1.1 BUN 12 Creatinine 0.51 L Troponin I 15.58 H* - Imaging and Cardiology Echo: report reviewed - EKG Interpretation EKG results cardiology: personally reviewed - VTE Reasons for not Prescribing Prophylaxis: Refused by patient Consult Discharge Plan - Plan Referrals: NONE,PCP [Primary Care Provider] -
[2018-03-13] MEDS ORDERED: *HR* Heparin 5,000 UNIT/ML VIAL IVP PRN ×2 (11:24)
[2018-03-13] MEDS ORDERED: Ondansetron 4 MG/2 ML VIAL IVP PRN (11:24)
[2018-03-13] MEDS ORDERED: Nitroglycerin 0.4 MG TAB.SUBL SL PRN (11:24)
[2018-03-13] MEDS ORDERED: Warfarin perPT PO PRN (11:24)
[2018-03-13] MEDS ORDERED: Acetaminophen 325 MG TABLET PO PRN (11:24)
[2018-03-13] MEDS: Heparin 25,000 UNIT/500 ML D5W 25,000 UNIT/500 ML BAG IVC SCH (16:56)
[2018-03-13] MEDS ORDERED: *HR* Warfarin 5 MG TABLET PO ONE (18:00)
[2018-03-13] MEDS ORDERED: *HR* Warfarin 5 MG TABLET PO SCH (18:00)
[2018-03-13] MEDS: *HR* LORazepam 2 MG/ML VIAL IVP PRN (20:45)
--- NOTE | 2018-03-13 22:21 | Electrocardiograph Report ---
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
--- NOTE | 2018-03-13 22:30 | Electrocardiograph Report ---
[place] [address] Test Date: 2018-03-10 Pat Name: Jessa Polanco Department: 109 Room: 2N1 Gender: F Fit Model: : 1945 Requested By: Jaron Strange Order Number: [id number] Reading MD: Moo Hurley Measurements Intervals [place] Rate: 85 P: PA: 0 QRS: 268 QRSD: 141 T: 66 QT: 436 QTc: 478 Interpretive Statements ACCELERATED IDIOVENTRICULAR RHYTHM Electronically Signed On 03-13-2018 22:28:45 EDT by Moo Hurley
--- NOTE | 2018-03-13 23:06 | Electrocardiograph Report ---
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
[2018-03-14] MEDS: Heparin 25,000 UNIT/500 ML D5W 25,000 UNIT/500 ML BAG IVC SCH (02:16)
[2018-03-14 05:34] LABS: INR 1.1; Prothrombin Time 12.8 Seconds (9.4-12.1)
[2018-03-14] MEDS: *HR* Warfarin 5 MG TABLET PO SCH ×2 (07:30→16:56)
[2018-03-14 09:09] LABS: Hematocrit 35.1 % (35.3-44.9); Hemoglobin 11.7 g/dL (11.5-15.4)
[2018-03-14] MEDS: *HR* Ticagrelor 90 MG TABLET PO SCH ×2 (09:31→20:37)
[2018-03-14] MEDS: Cholecalciferol (D-3) 1,000 UNIT TABLET PO SCH (09:32)
[2018-03-14] MEDS: Aspirin 81 MG TAB.CHEW PO SCH (09:32)
--- NOTE | 2018-03-14 14:36 | Cardiology Progress Note ---
Date of Encounter: 03/14/18 Time of Encounter: 14:41 Assessment and Plan (1) ST elevation myocardial infarction (STEMI) Current Visit: Yes Status: Acute Admitted on 03/10/18 with anterior STEMI. [facility] 03/10/18: s/p successful PTCA/CHRISTINA in the mLAD; otherwise 80% dLCx, EF 35% TTE: EF 35%, severe global dysfuntion, mild-moderate, mod PAH, apical thrombus seen. Chest pain free upon exam. No issues with right groin cath site. Sitting in chair. Working with PT/OT. Plans to go home with home health. Labs, vitals, and telemetry are stable. Continue BB, ACEi, statin. Emphasized the importance of uninterrupted DAPT (asa + brilinta) for a minimum of 1 year following CHRISTINA and she voiced understanding. Cardiac rehab ordered. VTE prophylaxis: currently on IV heparin gtt for apical thrombus with bridge to coumadin therapy. . D/c home with home health once INR 2.0. Qualifiers: Involved coronary artery: LAD coronary artery Qualified Code(s): I21.02 - ST elevation (STEMI) myocardial infarction involving left anterior descending coronary artery (2) Systolic dysfunction Current Visit: Yes Status: Acute Likely secondary to acute [place]. No prior testing. EF 35% per LV gram. TTE: EF 35%. Tolerating BB, will restart aceI. Continue to optimize doses as needed as BP/HR will tolerate. Clinically appears euvolemic up exam. Plan to revaluate LVEF after revascularization/trial of GDMT in 45 days. (3) Left ventricular apical thrombus Current Visit: Yes Status: Acute Coumadin started for apical thrombus. IV heparin bridge until INR 2.0. INR 1.1 today. Discussion w patient/family: The assessment and plan as outlined above was discussed with the patient and/or family members who expressed understanding and agreement. All questions were answered. Thank you for involving us in the care of your patient. Please call with any questions. Subjective Principal diagnosis: STEMI Interval history: Ms. Polanco is resting in her chair. Denies chest pain or SOB. Family expressed concern about patient going home. Patient adament that she goes home. Objective Vital Signs, Last 4 Hours Temp Pulse BP 03/14/18 10:53 98.1 F 72 118/69 General: Conversant, No Apparent Distress HEENT: Atraumatic, Normocephaly, Mucus Membranes Moist Neck: No JVD, Normal carotid pulses Cardiac: Reg Rate and Rhythm, Normal S1 and S2, No Murmur Lungs: Normal Breath Sounds, No Wheeze, Rales, Rhonchi Neuro: Alert and responsive, No focal deficits noted Abdomen: Soft, Non-Tender Skin: No rashes noted on visualized skin Musculoskeletal: No Chest Wall Tenderness Extremities: No Clubbing, No Cyanosis, No Edema, Normal Pulses, Other (No problem noted with right femoral access. ) Results 03/14/18 08:30 03/13/18 04:35 Lab Results 03/14/18 03/14/18 03:59 08:30 Hgb 11.7 Hct 35.1 L INR 1.1 - Imaging and Cardiology Echo: report reviewed Cardiac cath: report reviewed - EKG Interpretation EKG results cardiology: personally reviewed - VTE Reasons for not Prescribing Prophylaxis: Refused by patient Consult Discharge Plan - Plan Referrals: NONE,PCP [Primary Care Provider] -
[2018-03-14] MEDS: *HR* LORazepam 2 MG/ML VIAL IVP PRN (21:19)
[2018-03-15 04:19] LABS: Basophils # 0.1 K/mcL (0.0-0.2); Basophils % 0.7 %; Eosinophils # 0.3 K/mcL (0.0-0.6); Eosinophils % 3.2 %; Hematocrit 34.9 % (35.3-44.9); Hemoglobin 11.5 g/dL (11.5-15.4); Immature Granulocytes % 0.5 % (0-4); Lymphocytes # 1.4 K/mcL (0.6-4.6); Lymphocytes % 15.8 %; Mean Corpuscular Hemoglobin 30.8 pg (28.0-33.3); Mean Corpuscular Volume 93.6 fL (83.0-100.0); Mean Platelet Volume 10.8 fL (9.4-12.4); Monocytes # 0.7 K/mcL (0.0-1.3); Monocytes % 7.6 %; Neutrophils # 6.6 K/mcL (1.6-8.9); Platelet Count 228 K/mcL (140-400); Red Blood Count 3.73 M/mcL (3.82-4.97); Red Cell Distribution Width 13.3 % (11.5-14.5); Segmented Neutrophils % 72.2 %
[2018-03-15 04:25] LABS: INR 1.2; Prothrombin Time 13.3 Seconds (9.4-12.1)
[2018-03-15 04:38] LABS: BUN/Creatinine Ratio 20 (6-26); Blood Urea Nitrogen 10 mg/dL (8-23); Calcium 8.7 mg/dL (8.6-10.3); Carbon Dioxide 25 mEq/L (23-29); Chloride 109 mEq/L (98-107); Glucose 101 mg/dL (70-105); Osmolality,Calculated 289 (280-300); Potassium 3.3 mEq/L (3.5-5.1); Sodium 140 mEq/L (136-145); eGFR For Non-African Americans > 60 (> 60)
[2018-03-15] MEDS: Heparin 25,000 UNIT/500 ML D5W 25,000 UNIT/500 ML BAG IVC SCH (07:13)
[2018-03-15] MEDS: Aspirin 81 MG TAB.CHEW PO SCH (09:00)
[2018-03-15] MEDS: *HR* Ticagrelor 90 MG TABLET PO SCH ×2 (09:01→20:53)
[2018-03-15] MEDS: Cholecalciferol (D-3) 1,000 UNIT TABLET PO SCH (09:01)
[2018-03-15] MEDS ORDERED: Furosemide 20 MG TABLET PO PRN (13:50)
[2018-03-15] MEDS ORDERED: Furosemide 40 MG TABLET PO ONE (13:50)
--- NOTE | 2018-03-15 13:50 | Cardiology Progress Note ---
Date of Encounter: 03/15/18 Time of Encounter: 13:28 Assessment and Plan (1) ST elevation myocardial infarction (STEMI) Current Visit: Yes Status: Acute Admitted on 03/10/18 with anterior STEMI. [facility] 03/10/18: s/p successful PTCA/CHRISTINA in the mLAD; otherwise 80% dLCx, EF 35% TTE: EF 35%, severe global dysfuntion, mild-moderate, mod PAH, apical thrombus seen. Chest pain free upon exam. No issues with right groin cath site. Sitting in chair. Working with PT/OT. Plans to go home with home health. Labs, vitals, and telemetry are stable. Continue BB, ACEi, statin. Emphasized the importance of uninterrupted DAPT (asa + brilinta) for a minimum of 1 year following CHRISTINA and she voiced understanding. Cardiac rehab ordered. VTE prophylaxis: currently on IV heparin gtt for apical thrombus with bridge to coumadin therapy. . D/c home with home health once INR 2.0. Qualifiers: Involved coronary artery: LAD coronary artery Qualified Code(s): I21.02 - ST elevation (STEMI) myocardial infarction involving left anterior descending coronary artery (2) Systolic dysfunction Current Visit: Yes Status: Acute Likely secondary to acute [place]. No prior testing. EF 35% per LV gram. TTE: EF 35%. Tolerating BB, aceI. Continue to optimize doses as needed as BP/HR will tolerate. Reports SOB this morning while laying flat. Reports symptoms resolved after few minutes Will give lasix today Plan to revaluate LVEF after revascularization/trial of GDMT in 45 days. (3) Left ventricular apical thrombus Current Visit: Yes Status: Acute Coumadin started for apical thrombus. IV heparin bridge until INR 2.0. INR 1.2 today. Appt made with coumadin clinic on sunday. Discussion w patient/family: The assessment and plan as outlined above was discussed with the patient and/or family members who expressed understanding and agreement. All questions were answered. Thank you for involving us in the care of your patient. Please call with any questions. Subjective Principal diagnosis: STEMI Interval history: Ms. Polanco is resting in her chair. Denies chest pain. C/o difficulty cathching her breath this morning but now feels better. She is working with PT. Objective Vital Signs, Last 4 Hours Temp Pulse Resp BP Pulse Ox 03/15/18 11:11 98.1 F 72 19 102/69 97 General: Conversant, No Apparent Distress HEENT: Atraumatic, Normocephaly, Mucus Membranes Moist Neck: No JVD, Normal carotid pulses Cardiac: Reg Rate and Rhythm, Normal S1 and S2, No Murmur Lungs: Normal Breath Sounds Neuro: Alert and responsive, No focal deficits noted Abdomen: Soft, Non-Tender Skin: No rashes noted on visualized skin Musculoskeletal: No Chest Wall Tenderness Extremities: No Clubbing, No Cyanosis, No Edema, Normal Pulses Results 03/15/18 03:57 03/15/18 03:57 Lab Results 03/15/18 03/15/18 03/15/18 03:57 03:57 03:57 WBC 9.1 Hgb 11.5 Hct 34.9 L Plt Count 228 INR 1.2 Sodium 140 Potassium 3.3 L Chloride 109 H Carbon Dioxide 25 BUN 10 Creatinine 0.49 L Glucose 101 Calcium 8.7 - VTE Reasons for not Prescribing Prophylaxis: Refused by patient Consult Discharge Plan - Plan Referrals: NONE,PCP [Primary Care Provider] -
[2018-03-15] MEDS: *HR* Warfarin 5 MG TABLET PO SCH (17:12)
[2018-03-15] MEDS: *HR* LORazepam 2 MG/ML VIAL IVP PRN (21:04)
[2018-03-16 04:31] LABS: INR 1.8; Prothrombin Time 20.2 Seconds (9.4-12.1)
[2018-03-16] MEDS: Heparin 25,000 UNIT/500 ML D5W 25,000 UNIT/500 ML BAG IVC SCH (06:55)
[2018-03-16] MEDS: *HR* Ticagrelor 90 MG TABLET PO SCH ×2 (07:55→21:04)
[2018-03-16] MEDS: Cholecalciferol (D-3) 1,000 UNIT TABLET PO SCH (07:55)
[2018-03-16] MEDS: Aspirin 81 MG TAB.CHEW PO SCH (07:55)
--- NOTE | 2018-03-16 10:35 | Cardiology Progress Note ---
Date of Encounter: 03/16/18 Time of Encounter: 10:33 Assessment and Plan (1) ST elevation myocardial infarction (STEMI) Current Visit: Yes Status: Acute Admitted on 03/10/18 with anterior STEMI. [facility] 03/10/18: s/p successful PTCA/CHRISTINA in the mLAD; otherwise 80% dLCx, EF 35% TTE: EF 35%, severe global dysfuntion, mild-moderate, mod PAH, apical thrombus seen. Chest pain free upon exam. No issues with right groin cath site. Sitting in chair. Working with PT/OT. Plans to go home with home health. Labs, vitals, and telemetry are stable. Continue BB, ACEi, statin. Emphasized the importance of uninterrupted DAPT (asa + brilinta) for a minimum of 1 year following CHRISTINA and she voiced understanding. Cardiac rehab ordered. VTE prophylaxis: currently on IV heparin gtt for apical thrombus with bridge to coumadin therapy. . D/c home with home health once INR 2.0. Likely d/c in am. Qualifiers: Involved coronary artery: LAD coronary artery Qualified Code(s): I21.02 - ST elevation (STEMI) myocardial infarction involving left anterior descending coronary artery (2) Systolic dysfunction Current Visit: Yes Status: Acute Likely secondary to acute MS. No prior testing. EF 35% per LV gram. TTE: EF 35%. Tolerating BB, aceI. Continue to optimize doses as needed as BP/HR will tolerate. Reports SOB yesterday while laying flat. Reports symptoms resolved. Oral lasix given. No significant fluid overload on exam. Low sodium diet reviewed. Daily weights. Plan to revaluate LVEF after revascularization/trial of GDMT in 45 days. (3) Left ventricular apical thrombus Current Visit: Yes Status: Acute Coumadin started for apical thrombus. IV heparin bridge until INR 2.0. INR 1.8 today. Appt made with coumadin clinic on sunday. Discussion w patient/family: The assessment and plan as outlined above was discussed with the patient and/or family members who expressed understanding and agreement. All questions were answered. Thank you for involving us in the care of your patient. Please call with any questions. Subjective Principal diagnosis: STEMI Interval history: Ms. Polanco is resting in bed. Denies chest pain. Reports diarrhea resolved. No SOB. Objective Vital Signs, Last 4 Hours Pulse Resp BP Pulse Ox 03/16/18 10:27 76 18 103/69 97 03/16/18 07:04 76 16 108/58 97 General: Conversant, No Apparent Distress HEENT: Atraumatic, Normocephaly, Mucus Membranes Moist Neck: No JVD, Normal carotid pulses Cardiac: Reg Rate and Rhythm, Normal S1 and S2, No Murmur Lungs: Normal Breath Sounds, No Wheeze, Rales, Rhonchi Neuro: Alert and responsive, No focal deficits noted Abdomen: Soft, Non-Tender Skin: No rashes noted on visualized skin Musculoskeletal: No Chest Wall Tenderness Extremities: No Clubbing, No Cyanosis, No Edema, Normal Pulses Results 03/15/18 03:57 03/15/18 03:57 Lab Results 03/16/18 03:11 INR 1.8 - Imaging and Cardiology Echo: report reviewed Cardiac cath: report reviewed - EKG Interpretation EKG results cardiology: personally reviewed - VTE Reasons for not Prescribing Prophylaxis: Refused by patient Consult Discharge Plan - Plan Referrals: NONE,PCP [Primary Care Provider] -
[2018-03-16 10:58] LABS: Blood Urea Nitrogen 11 mg/dL (8-23); Calcium 8.9 mg/dL (8.6-10.3); Carbon Dioxide 25 mEq/L (23-29); Chloride 108 mEq/L (98-107); Glucose 102 mg/dL (70-105); Osmolality,Calculated 292 (280-300); Potassium 3.8 mEq/L (3.5-5.1); Sodium 141 mEq/L (136-145)
[2018-03-16 10:59] LABS: Basophils % 0.4 %; Eosinophils # 0.3 K/mcL (0.0-0.6); Eosinophils % 3.2 %; Hematocrit 37.3 % (35.3-44.9); Hemoglobin 12.6 g/dL (11.5-15.4); Immature Granulocytes % 0.5 % (0-4); Lymphocytes # 1.7 K/mcL (0.6-4.6); Lymphocytes % 18.2 %; Mean Corpuscular HGB Conc 33.8 g/dL (31.6-35.5); Mean Corpuscular Hemoglobin 32.3 pg (28.0-33.3); Mean Corpuscular Volume 95.6 fL (83.0-100.0); Mean Platelet Volume 11.4 fL (9.4-12.4); Monocytes # 0.7 K/mcL (0.0-1.3); Monocytes % 7.6 %; Neutrophils # 6.5 K/mcL (1.6-8.9); Platelet Count 254 K/mcL (140-400); Red Cell Distribution Width 13.2 % (11.5-14.5); Segmented Neutrophils % 70.1 %
[2018-03-16 12:11] LABS: BUN/Creatinine Ratio 16 (6-26); eGFR For Non-African Americans > 60 (> 60)
--- NOTE | 2018-03-16 12:18 | Electrocardiograph Report ---
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
[2018-03-16] MEDS: *HR* Warfarin 5 MG TABLET PO SCH (17:02)
[2018-03-16] MEDS: *HR* LORazepam 2 MG/ML VIAL IVP PRN (21:05)
[2018-03-17 04:57] LABS: INR 2.8; Prothrombin Time 31.6 Seconds (9.4-12.1)
[2018-03-17] MEDS: Heparin 25,000 UNIT/500 ML D5W 25,000 UNIT/500 ML BAG IVC SCH (06:05)
[2018-03-17 06:36] VITALS: BP 114/72
--- NOTE | 2018-03-17 06:36 | Discharge Summary ---
Orders not resulted at time of discharge: Pending orders 03/13/18 06:00 ECG 12 lead ECG [ECG] AM 0600 03/16/18 10:34 EKG [ECG 12 lead ECG] [ECG] Routine 03/17/18 19:00 Heparin anti-factor XA UFH [COAG] Timed 03/18/18 04:00 Prothrombin Time INR [COAG] AM 0400 Date of Encounter: 03/17/18 Time of Encounter: 06:30 - Discharge Diagnosis (1) ST elevation myocardial infarction (STEMI) Priority: Primary Status: Acute Qualifiers: Involved coronary artery: LAD coronary artery Qualified Code(s): I21.02 - ST elevation (STEMI) myocardial infarction involving left anterior descending coronary artery (2) Systolic dysfunction Priority: Primary Status: Acute (3) Left ventricular apical thrombus Priority: Primary Status: Acute - Hospital Course Hospital course: Ms. Polanco is a 73 year old female who presented with chest pain and was found to have an acute [place]. Emergent LHC completed and revealed severe two vessel CAD. S/p successful PTCA/CHRISTINA in the mLAD and dLCx, EF 35%. TTE showed EF 35%, severe global dysfuntion, mild-moderate, mod PAH, apical thrombus seen. She was recommended to start coumadin and required heparin bridge until therapeutic. INR 2.8 today. She is scheduled with the coumadin clinic 03/19/18 at 3:30 for follow-up. There was no complication from her procedure. She is working with PT /OT. Plans to go home with home health. Remains chest pain free. Emphasized the importance of uninterrupted DAPT (asa + brilinta) for a minimum of 1 year following CHRISTINA and she voiced understanding. Cardiac rehab ordered. - Time Spent with Patient Total time spent providing and/or coordinating discharge services: Greater than 30 minutes (d/c summary, d/c teaching, med rec.) - Discharge Medications Prescriptions: Nitroglycerin 0.4 mg SL Q5MIN PRN #25 tab.subl PRN Reason: Chest Pain Aspirin 81 mg PO DAILY #30 tab.chew Atorvastatin [Lipitor] 80 mg PO HS #30 tablet Carvedilol [Coreg] 3.125 mg PO BIDWM #60 tablet Furosemide [Lasix] 20 mg PO DAILY PRN #30 tablet PRN Reason: Edema Lisinopril [Zestril] 2.5 mg PO DAILY #30 tablet Ticagrelor [Brilinta] 90 mg PO BID #60 tablet Warfarin [Coumadin] 5 mg PO 1800 #30 tablet Home Medications: Cholecalciferol (D-3) [Vitamin D] 2,000 unit PO DAILY 02/05/18 [History] Aspirin 81 mg PO DAILY #30 tab.chew 03/17/18 [Rx] Atorvastatin [Lipitor] 80 mg PO HS #30 tablet 03/17/18 [Rx] Carvedilol [Coreg] 3.125 mg PO BIDWM #60 tablet 03/17/18 [Rx] Furosemide [Lasix] 20 mg PO DAILY PRN #30 tablet 03/17/18 [Rx] Lisinopril [Zestril] 2.5 mg PO DAILY #30 tablet 03/17/18 [Rx] Nitroglycerin 0.4 mg SL Q5MIN PRN #25 tab.subl 03/17/18 [Rx] Ticagrelor [Brilinta] 90 mg PO BID #60 tablet 03/17/18 [Rx] Warfarin [Coumadin] 5 mg PO 1800 #30 tablet 03/17/18 [Rx] Allergies/Adverse Reactions: 3 Allergy/AdvReac Type Severity Reaction Status Date / Time latex Allergy Swelling Verified 03/10/18 15:10 of the Eye Penicillins [PCN] Allergy Swelling Verified 03/10/18 15:10 of Lip/Tongue/Throat Sulfa (Sulfonamide Allergy Hives Verified 03/10/18 15:10 Antibiotics) Date of admission: 03/10/18 13:08 Primary care physician: PCP NONE Consults: 03/10/18 13:52 Consult to Cardiac Rehabilitation-Phase1 [CONS] Routine Comment: Reason for Consult: AMI Call Completed: Yes Consult to Nurse Navigator [CONS] Routine Comment: 03/10/18 13:56 Consult to Critical Care [CONS] Routine Consulting Provider: [facility] [place] Reason for Consult: critical care management Time Notified: 13:55 Call Completed: No 03/13/18 07:00 OT [Consult to Occupational Therapy] [CONS] Routine Comment: Evaluate, develop and implement POC Reason for Consult: weakness--to evaluate on 03/13/18 Bedrest lifted on AM Does patient have active BEDREST order?: Yes Is patient medically & hemodynamically stable?: Yes Patient assessed for mobility or mobilized this visit?: No 03/13/18 09:00 Consult to Physical Therapy [CONS] Routine Comment: Evaluate, develop and implement POC Reason for Consult: weakness--to evaluate on 03/13/18. Bedrest to be lifted on 03/13/18 AM Does patient have active BEDREST order?: Yes Is patient medically & hemodynamically stable?: Yes Patient assessed for mobility or mobilized this visit?: No Discharging clinician: Sixto Wilson Physical Examination Vital Signs, Last 4 Hours Temp Pulse Resp BP Pulse Ox 03/17/18 04:20 98.4 F 81 16 110/73 96 General: Conversant, No Apparent Distress HEENT: Atraumatic, Normocephaly, Mucus Membranes Moist Neck: No JVD, Normal carotid pulses Cardiac: Reg Rate and Rhythm, Normal S1 and S2, No Murmur Lungs: Normal Breath Sounds, No Wheeze, Rales, Rhonchi Neuro: Alert and responsive, No focal deficits noted Abdomen: Soft, Non-Tender Skin: No rashes noted on visualized skin Musculoskeletal: No Chest Wall Tenderness Extremities: No Clubbing, No Cyanosis, No Edema, Normal Pulses - Patient Status Disposition: Home Health Service Condition: Fair Functional capacity at discharge: independent ambulation Overall status at discharge: patient is progressing back to baseline - Discharge Instructions Follow Up With: Nora Wilson MD [Partnered Physician] - NONE,PCP [Primary Care Provider] - Additional Instructions: COUMADIN clinic appt 03/19/18 at 3:30 pm RISK FACTORS: STOP SMOKING: If you smoke, STOP. Smoking or tobacco use significantly increases your risk of heart disease because nicotine causes the arteries to narrow or constrict. It also causes fats to stick to the artery. Your chances of having a heart attack are greatly increased if you continue to smoke. For more information, call the education line for smoking cessation 2-150-XEWJUJB EAT A LOW FAT/CHOLESTEROL/SODIUM DIET: This diet may help reduce your chances of having a heart attack. LIFTING: Avoid lifting anything more than 10 pounds for 5-7 days Prior to straining, laughing, sneezing and/or coughing, apply manual pressure directly over insertion site. ACTIVITY: You may walk or climb stairs as tolerated You can resume sexual activity as tolerated In general, you are encouraged to engage in a minimum of 30 minutes or more of moderate intensity physical activity, such as brisk walking, daily or at least 3 -4 times weekly BATHING Do not submerge the site into water (bath tub, hot tub, swimming pool) for 1 week. This can be a source for infection into the blood stream. You may shower after 24 hours SITE CARE: After 24 hours, you may remove the dressing and leave the site open to air. Keep the site clean and dry. Clean gently and pat dry. You can expect bruising and tenderness that gradually resolve within a week or two. Return to work as instructed per your physician Resume driving as instructed per physician Keep all scheduled follow up appointments Resume medications as instructed IMPORTANT: If prescribed a Platelet Aggregation Inhibitor such as, Plavix, Brilinta or Effient: Duration of therapy is minimum one year These medications are often used in combination with Aspirin in prevention of future heart attacks Never discontinue unless consult with your Assurance Sourcing Manager STROKE (CVA) Risk factors for a stroke are: Age, cigarette smoking, diabetes, excessive alcohol consumption, family history, high blood pressure, overweight, physical inactivity, prior stroke, heart attack, diagnosis of carotid artery stenosis or other artery disease. Warning signs: Sudden numbness or weakness of the face, arm or leg; especially on one side of the body, sudden confusion, trouble speaking or understanding, sudden trouble seeing in one or both eyes, sudden trouble walking, dizziness, loss of balance or coordination, sudden severe headache with no cause. Call 911 or go to the Emergency Room. CONGESTIVE HEART FAILURE: If you have been diagnosed with Congestive Heart Failure (CHF) and your symptoms return, make an appointment with your physician Weigh yourself daily. Notify your physician if you have a weight gain of two or more pounds in one day or five or more pounds in one week. If you experience any difficulty breathing, please call 911 BLEEDING: Although the risk of bleeding is minimal, it can happen. If you have any bleeding from the site, apply firm pressure above the puncture site for 10-15 minutes. If the bleeding does not stop, continue manual pressure and call 911 Contact your physician if: You develop a fever greater than 101 degrees Fahrenheit Your site becomes reddened or has any drainage You have an increase in pain or burning at the site or if a large knot forms at the site. If you experience chest pain, shortness of breath, dizziness, or extreme tiredness, stop the activity and rest. Please notify your physicians office if you experience any of these symptoms and they are not relieved by rest please call 911! - Diet and Activity Activity: increase activity as tolerated Diet: low fat, low cholesterol - VTE Reasons for not Prescribing Prophylaxis: Refused by patient
[2018-03-17] MEDS: Aspirin 81 MG TAB.CHEW PO SCH (10:05)
[2018-03-17] MEDS: Cholecalciferol (D-3) 1,000 UNIT TABLET PO SCH (10:05)
[2018-03-17] MEDS: *HR* Ticagrelor 90 MG TABLET PO SCH (10:05)
--- NOTE | 2018-03-17 10:41 | Physician Discharge Referral ---
Home Health/Hosp Referral Info Transfer to: Home Health Attending Provider: Jaron Strange Provider in Charge Post Discharge: PCP - Diagnosis (1) ST elevation myocardial infarction (STEMI) Status: Acute (2) Systolic dysfunction Priority: Primary Status: Acute (3) Left ventricular apical thrombus Priority: Primary Status: Acute - Respiratory Orders None Smoking Cessation: Smoking cessation has been advised. For more information, call the [place] Tobacco Quit Line at 2-432-BGNJ-NOW. - Diet/Nutrition Diet/Nutrition Orders: Cardiac - Activity Activity Orders: Up ad patience - Services Needed Following services are medically necessary services: Nursing, Physical Therapy - Transfer Medications Prescriptions: Nitroglycerin 0.4 mg SL Q5MIN PRN #25 tab.subl PRN Reason: Chest Pain Aspirin 81 mg PO DAILY #30 tab.chew Atorvastatin [Lipitor] 80 mg PO HS #30 tablet Carvedilol [Coreg] 3.125 mg PO BIDWM #60 tablet Furosemide [Lasix] 20 mg PO DAILY PRN #30 tablet PRN Reason: Edema Lisinopril [Zestril] 2.5 mg PO DAILY #30 tablet Ticagrelor [Brilinta] 90 mg PO BID #60 tablet Warfarin [Coumadin] 5 mg PO 1800 #30 tablet Home Medications: Cholecalciferol (D-3) [Vitamin D] 2,000 unit PO DAILY 02/05/18 [History] Aspirin 81 mg PO DAILY #30 tab.chew 03/17/18 [Rx] Atorvastatin [Lipitor] 80 mg PO HS #30 tablet 03/17/18 [Rx] Carvedilol [Coreg] 3.125 mg PO BIDWM #60 tablet 03/17/18 [Rx] Furosemide [Lasix] 20 mg PO DAILY PRN #30 tablet 03/17/18 [Rx] Lisinopril [Zestril] 2.5 mg PO DAILY #30 tablet 03/17/18 [Rx] Nitroglycerin 0.4 mg SL Q5MIN PRN #25 tab.subl 03/17/18 [Rx] Ticagrelor [Brilinta] 90 mg PO BID #60 tablet 03/17/18 [Rx] Warfarin [Coumadin] 5 mg PO 1800 #30 tablet 03/17/18 [Rx] Allergies/Adverse Reactions: 3 Allergy/AdvReac Type Severity Reaction Status Date / Time latex Allergy Swelling Verified 03/10/18 15:10 of the Eye Penicillins [PCN] Allergy Swelling Verified 03/10/18 15:10 of Lip/Tongue/Throat Sulfa (Sulfonamide Allergy Hives Verified 03/10/18 15:10 Antibiotics) Certification: Further, I certify that my clinical findings support that this patient is homebound (i.e. absences from home require considerable and taxing effort and are for medical reasons or alevism services or infrequently or short duration when for other reasons) because: Homebound Reason: Leaving home requires considerable and taxing effort due to condition, Severity of cardiac or pulmonary status limits activity tolerance Attestation: My signature below is to certify that this patient is under my care and that I, or nurse practitioner, or a physician's surgical services assistant working with me, has a face-to -face encounter with this patient.
--- NOTE | 2018-03-20 16:44 | Electrocardiograph Report ---
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
== END 2018-03-17 14:15 | disposition home health service (06) | DRG 246 ==
LOC: EMEROOARM 12:06 → ICNU 12:15 → EMEROOARM 12:15 → ICNU 13:08 → 2NENU 03-13 17:27
PROVIDERS: ADMIT Internal Medicine Cardiovascular Disease; ATTEND Internal Medicine Cardiovascular Disease